=== PATIENT | female | born 1980 | race Caucasian/White ===

== ENCOUNTER 2017-12-22 09:48 | Outpatient (CLI) | payer OTHER | END 2017-12-22 10:00 | disposition home or self-care (01) | LOC: SONOGRAMA 09:48 | DX: M25.541 Pain in joints of right hand (principal) ==

== ENCOUNTER 2017-12-22 10:07 | Outpatient (CLI) | payer OTHER | END 2017-12-22 10:10 | disposition home or self-care (01) | LOC: RAD 10:07 | DX: M25.541 Pain in joints of right hand (principal) ==